=== PATIENT | female | born 1985 | race Hispanic/Latino ===

== ENCOUNTER 2017-03-15 12:15 | Outpatient (CLI) | payer MEDICAID ==
[2017-03-15 12:31] VITALS: BP 107/60
== END 2017-03-15 13:10 | disposition left against medical advice (07) ==
LOC: TRG 12:15
PROVIDERS: ATTEND Obstetrics & Gynecology
DX: O47.9 False labor, unspecified (principal); Z3A.00 Weeks of gestation of pregnancy not specified
CPT/HCPCS: 59025